=== PATIENT | male | born 1995 | race Caucasian/White ===

== ENCOUNTER 2017-10-03 20:20 | Inpatient (IN) | payer OTHER ==
[~2017-10-03] VITALS: Ht 182.9 cm; Wt 96.5 kg
[2017-10-03 21:01] VITALS: BP 133/80; PULSE 98; RESP 18; TEMP 98.1; O2SAT 98
[2017-10-03 22:25] LABS: AUTOMATED NEUTROPHIL # 7.2 TH/MM3 (1.8-7.7); BASOPHIL % 0.3 % (0.0-2.0); EOSINOPHIL # 0.1 TH/MM3 (0-0.4); EOSINOPHIL % 0.9 % (0.0-4.0); HEMATOCRIT 44.3 % (39.0-51.0); HEMOGLOBIN 15.1 GM/DL (13.0-17.0); LYMPH % 28.5 % (9.0-44.0); LYMPHOCYTE # 3.3 TH/MM3 (1.0-4.8); MEAN CELL VOLUME 87.8 FL (80.0-100.0); MEAN CORPUSCULAR HGB CONC 34.1 % (32.0-36.0); MEAN PLATELET VOLUME 8.1 FL (7.0-11.0); MONO % 8.7 % (0.0-8.0); NEUT % 61.6 % (16.0-70.0); PLATELET COUNT 318 TH/MM3 (150-450); RED BLOOD COUNT 5.04 MIL/MM3 (4.50-5.90); RED CELL DISTRIBUTION WIDTH 13.1 % (11.6-17.2); WHITE BLOOD COUNT 11.7 TH/MM3 (4.0-11.0)
[2017-10-03 22:35] LABS: ALBUMIN 4.5 GM/DL (3.4-5.0); ALT (GPT) 32 U/L (12-78); AST (GOT) 20 U/L (15-37); BICARBONATE 19.8 MEQ/L (21.0-32.0); BLOOD UREA NITROGEN 17 MG/DL (7-18); CALCIUM 9.6 MG/DL (8.5-10.1); CHLORIDE 105 MEQ/L (98-107); CREATININE 1.43 MG/DL (0.60-1.30); GLOMERULAR FILTRATION RATE 62 ML/MIN (>89); GLUCOSE,RANDOM 94 MG/DL (74-106); SODIUM (NA) 142 MEQ/L (136-145)
[2017-10-03 22:44] LABS: ALKALINE PHOSPHATASE 72 U/L (45-117); TOTAL BILIRUBIN ADULT 0.2 MG/DL (0.2-1.0); TOTAL PROTEIN 8.5 GM/DL (6.4-8.2)
--- NOTE | 2017-10-03 23:08 | PD ---
HPI Chief Complaint: Psychiatric Symptoms Time Seen by Provider: 21:57 Travel History International Travel<30 days: No Contact w/Intl Traveler<30days: No Traveled to known affect area: No History of Present Illness HPI 21-year-old white male presents emergency department under Beck act by PD. According to the Beck act the patient had made homicidal statements regarding his family. He had stated that he was going to kill all of his family and was laughing inappropriately. The patient denies this. The patient denies any suicidal homicidal ideation. He denies any recent alcohol use. He does smoke marijuana occasionally. No other drugs. Patient denies any medical complaints. PFSH Past Medical History Narrative Medical Schizophrenia, right femur fracture Schizophrenia: Yes Tetanus Vaccination: < 5 Years ?: Not Past Surgical History Narrative Surgical Right femur fracture with ORIF Social History Alcohol Use: Yes Tobacco Use: No Substance Use: Yes Allergies-Medications (Allergen,Severity, Reaction): Coded Allergies: No Known Allergies (Verified Allergy, Unknown, 10/03/17) Review of Systems General / Constitutional: No: Fever Eyes: No: Visual changes HENT: No: Headaches Cardiovascular: No: Chest Pain or Discomfort Respiratory: No: Shortness of Breath Gastrointestinal: No: Abdominal Pain Genitourinary: No: Dysuria Musculoskeletal: No: Pain Skin: No Rash Neurologic: No: Weakness Psychiatric: Positive: Substance Abuse, No: Anxiety, Depression, Suicidal Ideations, Disorder of Thought, Mood Disorder, Homicidal Ideation Endocrine: No: Polydipsia Hematologic/Lymphatic: No: Easy Bruising Physical Exam Narrative GENERAL: Well-nourished, well-developed patient. SKIN: Warm and dry. HEAD: Normocephalic and atraumatic. EYES: No scleral icterus. No injection or drainage. ENT: No nasal drainage noted. Mucous membranes pink. Airway patent. NECK: Supple, trachea midline. Moves head freely without obvious discomfort. CARDIOVASCULAR: Regular rate and rhythm without murmurs, gallops, or rubs. RESPIRATORY: Breath sounds equal bilaterally. No accessory muscle use. GASTROINTESTINAL: Abdomen soft, non-tender, nondistended. EXTREMITIES: No cyanosis or edema. BACK: Nontender without obvious deformity. No CVA tenderness. NEURO: Patient is alert and oriented. no sensorimotor deficits. Nonfocal. Normal speech. PSYCH: Patient appears to be responding to internal stimuli. He has an unusual affect. He has poor insight and judgment. Data Data Last Documented VS Vital Signs Date Time Temp Pulse Resp B/P (MAP) Pulse Ox O2 Delivery O2 Flow Rate FiO2 10/03/17 21:01 98.1 98 18 133/80 (97) 98 Orders Orders Complete Blood Count With Diff (10/03/17 21:34) Comprehensive Metabolic Panel (10/03/17 21:34) Thyroid Stimulating Hormone (10/03/17 21:34) Psych Screen (10/03/17 21:34) Drug Screen, Random Urine (10/03/17 21:34) Alcohol (Ethanol) (10/03/17 21:34) Labs Laboratory Tests Test 10/03/17 21:20 10/03/17 21:50 10/03/17 21:52 Urine Opiates Screen NEG Urine Barbiturates Screen NEG Urine Amphetamines Screen NEG Urine Benzodiazepines Screen NEG Urine Cocaine Screen NEG Urine Cannabinoids Screen POS White Blood Count 11.7 TH/MM3 Red Blood Count 5.04 MIL/MM3 Hemoglobin 15.1 GM/DL Hematocrit 44.3 % Mean Corpuscular Volume 87.8 FL Mean Corpuscular Hemoglobin 30.0 PG Mean Corpuscular Hemoglobin Concent 34.1 % Red Cell Distribution Width 13.1 % Platelet Count 318 TH/MM3 Mean Platelet Volume 8.1 FL Neutrophils (%) (Auto) 61.6 % Lymphocytes (%) (Auto) 28.5 % Monocytes (%) (Auto) 8.7 % Eosinophils (%) (Auto) 0.9 % Basophils (%) (Auto) 0.3 % Neutrophils # (Auto) 7.2 TH/MM3 Lymphocytes # (Auto) 3.3 TH/MM3 Monocytes # (Auto) 1.0 TH/MM3 Eosinophils # (Auto) 0.1 TH/MM3 Basophils # (Auto) 0.0 TH/MM3 CBC Comment DIFF FINAL Differential Comment Blood Urea Nitrogen 17 MG/DL Creatinine 1.43 MG/DL Random Glucose 94 MG/DL Total Protein 8.5 GM/DL Albumin 4.5 GM/DL Calcium Level 9.6 MG/DL Alkaline Phosphatase 72 U/L Aspartate Amino Transf (AST/SGOT) 20 U/L Alanine Aminotransferase (ALT/SGPT) 32 U/L Total Bilirubin 0.2 MG/DL Sodium Level 142 MEQ/L Potassium Level 3.7 MEQ/L Chloride Level 105 MEQ/L Carbon Dioxide Level 19.8 MEQ/L Anion Gap 17 MEQ/L Estimat Glomerular Filtration Rate 62 ML/MIN Thyroid Stimulating Hormone 3rd Gen 1.540 uIU/ML Ethyl Alcohol Level LESS THAN 3 MG/DL MDM Medical Decision Making Medical Screen Exam Complete: Yes Emergency Medical Condition: Yes Medical Record Reviewed: Yes Interpretation(s) Laboratory Tests Test 10/03/17 21:20 10/03/17 21:50 10/03/17 21:52 Urine Opiates Screen NEG Urine Barbiturates Screen NEG Urine Amphetamines Screen NEG Urine Benzodiazepines Screen NEG Urine Cocaine Screen NEG Urine Cannabinoids Screen POS White Blood Count 11.7 TH/MM3 Red Blood Count 5.04 MIL/MM3 Hemoglobin 15.1 GM/DL Hematocrit 44.3 % Mean Corpuscular Volume 87.8 FL Mean Corpuscular Hemoglobin 30.0 PG Mean Corpuscular Hemoglobin Concent 34.1 % Red Cell Distribution Width 13.1 % Platelet Count 318 TH/MM3 Mean Platelet Volume 8.1 FL Neutrophils (%) (Auto) 61.6 % Lymphocytes (%) (Auto) 28.5 % Monocytes (%) (Auto) 8.7 % Eosinophils (%) (Auto) 0.9 % Basophils (%) (Auto) 0.3 % Neutrophils # (Auto) 7.2 TH/MM3 Lymphocytes # (Auto) 3.3 TH/MM3 Monocytes # (Auto) 1.0 TH/MM3 Eosinophils # (Auto) 0.1 TH/MM3 Basophils # (Auto) 0.0 TH/MM3 CBC Comment DIFF FINAL Differential Comment Blood Urea Nitrogen 17 MG/DL Creatinine 1.43 MG/DL Random Glucose 94 MG/DL Total Protein 8.5 GM/DL Albumin 4.5 GM/DL Calcium Level 9.6 MG/DL Alkaline Phosphatase 72 U/L Aspartate Amino Transf (AST/SGOT) 20 U/L Alanine Aminotransferase (ALT/SGPT) 32 U/L Total Bilirubin 0.2 MG/DL Sodium Level 142 MEQ/L Potassium Level 3.7 MEQ/L Chloride Level 105 MEQ/L Carbon Dioxide Level 19.8 MEQ/L Anion Gap 17 MEQ/L Estimat Glomerular Filtration Rate 62 ML/MIN Thyroid Stimulating Hormone 3rd Gen 1.540 uIU/ML Ethyl Alcohol Level LESS THAN 3 MG/DL Differential Diagnosis MDM: High Differential diagnoses: Schizophrenia, schizoaffective disorder, bipolar, anxiety, depression, adjustment reaction, mood disorder NOS, ODD, depressive disorder NOS, dementia, dementia with agitation, psychosis NOS, substance induced mood disorder, DMDD, Asperger syndrome, infection,electrolyte abnormality, malingering. Narrative Course Mental health screening discussed with the patient. Psychiatric screen ordered. The patient has been medically cleared. This psychiatric medical clearance for psychiatric admission Diagnosis Primary Impression: Medical clearance for psychiatric admission Condition: Stable Jas Clark Oct 03, 2017 23:08
[2017-10-04 02:35] VITALS: BP 106/55; PULSE 50; RESP 18; O2SAT 99
[2017-10-04] MEDS ORDERED: LORazepam 2 MG/ML VIAL IM PRN (10:30)
[2017-10-04] MEDS ORDERED: diphenhydrAMINE HCL 50 MG CAP PO PRN (10:30)
[2017-10-04] MEDS ORDERED: ALUMINUM/MAGNESIUM/SIMETH 30 ML CUP PO PRN (10:30)
[2017-10-04] MEDS ORDERED: MAGNESIUM HYDROXIDE SUSP 30 ML CUP PO PRN (10:30)
[2017-10-04] MEDS ORDERED: LORazepam 1 MG TAB PO PRN (10:30)
[2017-10-04] MEDS ORDERED: ACETAMINOPHEN 325 MG TAB PO PRN (10:30)
[2017-10-04] MEDS ORDERED: diphenhydrAMINE HCL 50 MG/ML VIAL IM PRN (10:30)
--- NOTE | 2017-10-04 10:30 | HHI.HP ---
Provisional Diagnosis Admission Date [place] I. Schizophrenia, paranoid type Certification of Person's Competence To Provide Express and Informed Consent I have personally examined Timbo Mcfadden , a person being served at [facility] on, Oct 04, 2017 10:19. Express and informed consent means consent voluntarily given in writing, by a competent person, after sufficient explanation and disclosure of the subject matter involved to enable the person to make a knowing and willful decision without any element of force, fraud, deceit, duress, or other form of constraint or coercion. This person is 18 years of age or older, is not now known to be incompetent to consent to treatment with a guardian advocate, and does not have a health care surrogate or proxy currently making medical treatment decisions. I have found this person to be one of the following: [] Competent to provide express and informed consent, as defined above, for voluntary admission to this facility and is competent to provide express and informed consent for treatment. He/she has the consistent capacity to make well reasoned, willful, and knowing decisions concerning his or her medical or mental health treatment. The person fully and consistently understands the purpose of the admission for examination/placement and is fully capable of personally exercising all rights [place] [X] Incompetent to provide express and informed consent to voluntary admission, and this is incompetent to provide express and informed consent to treatment. The person must be transferred to involuntary status and a petition for a guardian advocate filed with the Circuit Court. [] Refusing to provide express and informed consent to voluntary admission but is competent to provide express and informed consent for treatment. The person must be discharged or transferred to involuntary status. Form shall be completed within 24 hours of a person's arrival at the receiving facility and filed in the clinical record of each person: 1. Admitted on a voluntary basis 2. Permitted to provide express and informed consent to his/her own treatment 3. Allowed to transfer from involuntary to voluntary status 4. Prior to permitting a person to consent to his or her own treatment after having been previously found incompetent to consent to treatment. History of Present Illness Capacity: Lacks Capacity HPI This is a 21-year-old male who was Beck acted at his first appointment with Dr. Rubio. According to the Beck act the stepfather of the patient reported the patient made comments in the waiting room of the physician's office, "I should kill all my family so I could laugh." Additionally, the Beck act indicates the patient is actively delusional, feels he has been "hacked" and that he has a hit man after him. He also feels his family has stolen millions of dollars from him. His family feels that he is paranoid. The emergency room physician also evaluated the patient and found him to be bizarre and paranoid. The patient would not give information regarding family members or other contacts. He was observed to be both restless and punching santana. When redirected, the patient indicated he was going to try out for [employer]. He reportedly stated that his family was to him. He denies the use of alcohol but does admit to smoking marijuana. He denies other illicit drug use. He declines to take any psychotropic medication. He remains delusional, feeling others have stolen money from him and hacked into his computer system. Review of Systems ROS Limitations: Clinical Condition Psychiatric: COMPLAINS OF: Anxiety, Homicidal Ideation, Delusions Except as stated in HPI: all other systems reviewed are Neg Past Psych History Psychological trauma history Unknown psychological trauma but the patient reportedly has a history of schizophrenia. Violence risk - others (6 mos) High Violence risk - self (6 mos) High Substance Abuse History Drugs/Alcohol past 12 months Smokes marijuana at least weekly. Past Family Social History Coded Allergies: No Known Allergies (Verified Allergy, Unknown, 10/03/17) Family Psych History Unknown. Patient refuses to answer. Social History Apparently he is living with his mother and stepfather. He is unemployed. Unknown whether he receives Social Security disability. Denies the use of alcohol or illicit drugs with the exception of marijuana. Patient's Strengths (min. 2) Verbal and resilient. Physical Exam GENERAL: SKIN: Warm and dry. HEAD: Normocephalic. EYES: No scleral icterus. No injection or drainage. NECK: Supple, trachea midline. No JVD or lymphadenopathy. CARDIOVASCULAR: Regular rate and rhythm without murmurs, gallops, or rubs. RESPIRATORY: Breath sounds equal bilaterally. No accessory muscle use. GASTROINTESTINAL: Abdomen soft, non-tender, nondistended. MUSCULOSKELETAL: No cyanosis, or edema. BACK: Nontender without obvious deformity. No CVA tenderness. Vital Signs Vital Signs Date Time Temp Pulse Resp B/P (MAP) Pulse Ox O2 Delivery O2 Flow Rate FiO2 10/04/17 02:35 50 18 106/55 (72) 99 Room Air 10/03/17 21:01 98.1 Lab Results Test 10/03/17 21:20 10/03/17 21:50 10/03/17 21:52 Urine Opiates Screen NEG Urine Barbiturates Screen NEG Urine Amphetamines Screen NEG Urine Benzodiazepines Screen NEG Urine Cocaine Screen NEG Urine Cannabinoids Screen POS White Blood Count 11.7 TH/MM3 Red Blood Count 5.04 MIL/MM3 Hemoglobin 15.1 GM/DL Hematocrit 44.3 % Mean Corpuscular Volume 87.8 FL Mean Corpuscular Hemoglobin 30.0 PG Mean Corpuscular Hemoglobin Concent 34.1 % Red Cell Distribution Width 13.1 % Platelet Count 318 TH/MM3 Mean Platelet Volume 8.1 FL Neutrophils (%) (Auto) 61.6 % Lymphocytes (%) (Auto) 28.5 % Monocytes (%) (Auto) 8.7 % Eosinophils (%) (Auto) 0.9 % Basophils (%) (Auto) 0.3 % Neutrophils # (Auto) 7.2 TH/MM3 Lymphocytes # (Auto) 3.3 TH/MM3 Monocytes # (Auto) 1.0 TH/MM3 Eosinophils # (Auto) 0.1 TH/MM3 Basophils # (Auto) 0.0 TH/MM3 CBC Comment DIFF FINAL Differential Comment Blood Urea Nitrogen 17 MG/DL Creatinine 1.43 MG/DL Random Glucose 94 MG/DL Total Protein 8.5 GM/DL Albumin 4.5 GM/DL Calcium Level 9.6 MG/DL Alkaline Phosphatase 72 U/L Aspartate Amino Transf (AST/SGOT) 20 U/L Alanine Aminotransferase (ALT/SGPT) 32 U/L Total Bilirubin 0.2 MG/DL Sodium Level 142 MEQ/L Potassium Level 3.7 MEQ/L Chloride Level 105 MEQ/L Carbon Dioxide Level 19.8 MEQ/L Anion Gap 17 MEQ/L Estimat Glomerular Filtration Rate 62 ML/MIN Thyroid Stimulating Hormone 3rd Gen 1.540 uIU/ML Ethyl Alcohol Level LESS THAN 3 MG/DL Mental Status Examination Appearance: Appropriate Consciousness: Alert Orientation: Person, Place Motor Activity: Normal gait Speech: Unremarkable Language: Adequate Fund of Knowledge: Adequate Attention and Concentration: Inadequate Memory: Unremarkable Mood: Anxious Affect: Anxious Thought Process & Associations: Loose associations Thought Content: Bizarre thinking, Ideas of reference, Delusional Hallucination Type: None Delusion Type: Bizarre Suicidal Ideation: No Suicidal Plan: No Suicidal Intention: No Homicidal Ideation: Yes Homicidal Plan: Yes Homicidal Intention: No Insight: Poor Judgment: Impulsive Assessment & Plan Problem List: (1) Schizophrenia, paranoid type ICD Codes: F20.0 - Paranoid schizophrenia Assessment & Plan Estimated LOS: days. 21-year-old male with reported history of paranoid schizophrenia, currently delusional, currently under a Beck act for homicidal ideation and delusional thinking, noncompliant with medications, felt to be at high risk for self-harm as well as harm to others. Patient recently threatening family members and punching santana. For this reason he is being admitted for further evaluation and treatment. This physician has ordered a CBC and comprehensive metabolic panel to determine if any infectious process or metabolic process might be causing or contributing to the patient's psychotic thinking. Additionally, this physician has ordered a thyroid-stimulating hormone level, vitamin B12 level and vitamin D level as deficiencies in these areas can cause or contribute to the patient's psychotic thinking. This physician has also ordered a urine drug screen to determine if any substances might be causing or contributing to the patient's psychosis. An EKG is ordered to determine the patient's cardiac conduction status prior to starting psychotropic medicines which might adversely affect the electrical system of his heart. This physician spoke to the patient's nurse, Lev, regarding the patient's recent behavior. Case management will also be involved to assist with information gathering and disposition planning. Kirill Hu MD Oct 04, 2017 10:30
[2017-10-04 14:23] VITALS: BP 129/89; PULSE 64; RESP 18; TEMP 98.1
[2017-10-05 08:42] LABS: AUTOMATED NEUTROPHIL # 2.7 TH/MM3 (1.8-7.7); BASOPHIL % 0.6 % (0.0-2.0); EOSINOPHIL # 0.2 TH/MM3 (0-0.4); EOSINOPHIL % 2.7 % (0.0-4.0); HEMATOCRIT 42.9 % (39.0-51.0); HEMOGLOBIN 14.8 GM/DL (13.0-17.0); LYMPH % 41.4 % (9.0-44.0); LYMPHOCYTE # 2.4 TH/MM3 (1.0-4.8); MEAN CELL VOLUME 87.7 FL (80.0-100.0); MEAN CORPUSCULAR HEMOGLOBIN 30.2 PG (27.0-34.0); MEAN CORPUSCULAR HGB CONC 34.4 % (32.0-36.0); MEAN PLATELET VOLUME 7.9 FL (7.0-11.0); MONO % 8.2 % (0.0-8.0); MONOCYTE # 0.5 TH/MM3 (0-0.9); NEUT % 47.1 % (16.0-70.0); PLATELET COUNT 266 TH/MM3 (150-450); RED BLOOD COUNT 4.89 MIL/MM3 (4.50-5.90); RED CELL DISTRIBUTION WIDTH 12.8 % (11.6-17.2); WHITE BLOOD COUNT 5.8 TH/MM3 (4.0-11.0)
[2017-10-05 09:12] LABS: ALBUMIN 4.1 GM/DL (3.4-5.0); AST (GOT) 21 U/L (15-37); BLOOD UREA NITROGEN 13 MG/DL (7-18); CALCIUM 8.8 MG/DL (8.5-10.1); CHLORIDE 105 MEQ/L (98-107); CREATININE 1.09 MG/DL (0.60-1.30); GLOMERULAR FILTRATION RATE 85 ML/MIN (>89); GLUCOSE,RANDOM 84 MG/DL (74-106); SODIUM (NA) 141 MEQ/L (136-145)
[2017-10-05 09:13] LABS: ALT (GPT) 31 U/L (12-78); CHOLESTEROL 230 MG/DL (120-200)
[2017-10-05 09:39] LABS: ALKALINE PHOSPHATASE 63 U/L (45-117); HDL CHOLESTEROL 40.3 MG/DL (40.0-60.0); LDL CHOLESTEROL 172 MG/DL (0-99); TOTAL BILIRUBIN ADULT 0.4 MG/DL (0.2-1.0); TOTAL PROTEIN 7.5 GM/DL (6.4-8.2); TRIGLYCERIDES 91 MG/DL (42-150)
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
[2017-10-05] MEDS ORDERED: diphenhydrAMINE HCL 50 MG CAP PO PRN (12:30)
[2017-10-05] MEDS ORDERED: BENZTROPINE MESYLATE 1 MG TAB PO PRN (12:30)
[2017-10-05] MEDS ORDERED: BENZTROPINE MESYLATE 2 MG/2 ML VIAL IM PRN (12:30)
--- NOTE | 2017-10-05 13:38 | EKG ---
Date Performed: 10/05/2017 Time Performed: 10:43:18 PTAGE: 21 years EKG: SINUS BRADYCARDIA WITH SINUS ARRHYTHMIA POSSIBLE RIGHT VENTRICULAR CONDUCTION DELAY TALL T- WAVES, SUGGESTS HYPERKALEMIA ABNORMAL ECG NO PREVIOUS TRACING DOCTOR: Wilmar Bean Interpretating Date/Time 10/05/2017 13:37:13
[2017-10-05 17:09] LABS: HEMOGLOBIN A1C 5.3 % (4.3-6.0)
[2017-10-05 18:17] VITALS: BP 135/77; PULSE 86; RESP 18; TEMP 98.6; O2SAT 99
[2017-10-06 06:03] VITALS: BP 100/50; PULSE 47; RESP 17; TEMP 97.5; O2SAT 95
[2017-10-06 06:19] VITALS: PULSE 60
--- NOTE | 2017-10-06 10:22 | HHI.PYPN ---
Subjective Remarks Patient seen and examined. Chart reviewed. Case discussed with nursing staff who reports that the patient has been bizarre on the unit, running up and down the bill. On my examination today, the patient is oddly related and appears internally preoccupied. He denies any SI or HI but seems unreliable to contract for safety. Regarding his presenting threats to family he says "I regret saying it." He says that he was nonadherent with psychotropic medications because a doctor at his most recent hospitalization "said not to take your medicine." Did receive a dose of Ativan overnight. No side effects from medications. No physical complaints. Received a call from patient's mother. She has spoken with the patient's biological father and discovered that the patient previously responded well to Haldol decanoate. We review the patient's medication options and agree to resume oral Haldol with short acting IM backup should the patient refuse oral Haldol. Plan will be for Haldol Decanoate so long as he responds to this agent well. Review of Systems ROS Limitations: Psychotic, Poor Historian Except as stated in HPI: all other systems reviewed are Neg Mental Status Examination Appearance: Appropriate Consciousness: Alert Orientation: Person, Place (at least) Motor Activity: Other (no abnormal motor movements noted) Speech: Unremarkable Language: Adequate Fund of Knowledge: Adequate Attention and Concentration: Inadequate Memory: Unremarkable Mood: Anxious Affect: Blunt (odd) Thought Process & Associations: Tangential Thought Content: Bizarre thinking Hallucination Type: Other (remains internally preoccupied) Delusion Type: None Suicidal Ideation: No Suicidal Plan: No Suicidal Intention: No Homicidal Ideation: No Homicidal Plan: No Homicidal Intention: No Insight: Poor Judgment: Poor Results Labs Labs reviewed. Vitals/IOs Vital Signs Date Time Temp Pulse Resp B/P (MAP) Pulse Ox O2 Delivery O2 Flow Rate FiO2 10/06/17 06:19 60 10/06/17 06:03 97.5 17 100/50 (67) 95 10/04/17 02:35 Room Air Assessment & Plan Problem List: (1) Schizophrenia, paranoid type ICD Codes: F20.0 - Paranoid schizophrenia Assessment & Plan Initiate Haldol titration, PO with IM backup. Interval target dose of Haldol will be 10mg BID. To consider Haldol dec. R/B/A d/w pt's mother/HCS. Patient has Cogentin p.r.n. any EPS. Continue to monitor on high acuity unit. Continue other medications and care as ordered. Justification for Cont. Inpt. Medication changes. Impairment in reality construction. Risk for decompensation in less restrictive environment. Discharge Planning Pending psychiatric stabilization Request HC Surrog/Guard Advoc?: Yes Allan Koehler MD Oct 06, 2017 10:22
--- NOTE | 2017-10-06 13:25 | PD.TTN ---
Patient Problems 1. Discharge planning 2. Medication compliance 3. Knowledge deficit 4. Lack of coping skills Progress Toward Goals Provider Present: Dr. Arjun Koehler Provider Input: Started on antipsychotic, needs stabilization. Dr. Rubio treats him. Nurse(s) Present: Not present Psychiatric Counselors Present: GERALD GoldsteinW Group Spec/RT/OT/PUENTES Present: Antoinette Potter, GPS, Pastor Hdz, OT Group Spec/RT/OT/PUENTES Input: Pt is unable to tolerate the group activities. pt is disorganized. Discharge Plan Other Antoinette Potter Oct 06, 2017 13:25
[2017-10-06] MEDS ORDERED: HALOPERIDOL LACTATE 5 MG/ML AMP IM PRN (14:15)
[2017-10-06 18:08] VITALS: BP 139/61; PULSE 95; RESP 19; TEMP 98.5; O2SAT 99
[2017-10-06] MEDS: HALOPERIDOL 5 MG TAB PO SCH (21:10)
[2017-10-07 06:28] VITALS: BP 135/59; PULSE 50; RESP 17; TEMP 97.4; O2SAT 98
[2017-10-07] MEDS: HALOPERIDOL 5 MG TAB PO SCH ×2 (09:13→20:43)
[2017-10-07] MEDS: CHOLECALCIFEROL (VIT D3) 400 UNIT TAB PO SCH (09:14)
--- NOTE | 2017-10-07 12:50 | HHI.PYPN ---
Subjective Remarks Pt seen and discussed with staff. He remains paranoid and has been expressing that his family is hacking him and stole millions of dollars from him. He has been pacing halls, flapping arms and squawking. He is compliant with medications. He denies SI/HI today. Mental Status Examination Appearance: Appropriate Consciousness: Alert Orientation: Person, Place (at least) Motor Activity: Other (no abnormal motor movements noted) Speech: Unremarkable Language: Adequate Fund of Knowledge: Adequate Attention and Concentration: Inadequate Memory: Unremarkable Mood: Anxious Affect: Blunt (odd) Thought Process & Associations: Tangential Thought Content: Bizarre thinking Hallucination Type: Other (remains internally preoccupied) Delusion Type: None Suicidal Ideation: No Suicidal Plan: No Suicidal Intention: No Homicidal Ideation: No Homicidal Plan: No Homicidal Intention: No Insight: Poor Judgment: Poor Results Vitals/IOs Vital Signs Date Time Temp Pulse Resp B/P (MAP) Pulse Ox O2 Delivery O2 Flow Rate FiO2 10/07/17 06:28 97.4 50 17 135/59 (84) 98 10/04/17 02:35 Room Air Assessment & Plan Problem List: (1) Schizophrenia, paranoid type ICD Codes: F20.0 - Paranoid schizophrenia Assessment & Plan Continue current tx plan. Estimated LOS: days Justification for Cont. Inpt. impairments in reality testing Request HC Surrog/Guard Advoc?: Yes Radha Amin MD Oct 07, 2017 12:50
[2017-10-07] MEDS ORDERED: PILL SPLITTER OTHER PRN (14:45)
[2017-10-07 17:41] VITALS: BP 107/77; PULSE 95; RESP 19; TEMP 97.2; O2SAT 97
[2017-10-08 06:17] VITALS: BP 148/76; PULSE 53; RESP 17; TEMP 97.8; O2SAT 97
[2017-10-08] MEDS: HALOPERIDOL 5 MG TAB PO SCH ×2 (08:36→20:15)
[2017-10-08] MEDS: CHOLECALCIFEROL (VIT D3) 400 UNIT TAB PO SCH (08:36)
--- NOTE | 2017-10-08 13:21 | HHI.PYPN ---
Subjective Remarks Pt seen and discussed with staff. He was caught attempting to cheek medications this morning by staff but eventually was compliant. Sleep is fair. He remains paranoid, but denies SI/HI. Mental Status Examination Appearance: Appropriate Consciousness: Alert Orientation: Person, Place (at least) Motor Activity: Other (no abnormal motor movements noted) Speech: Unremarkable Language: Adequate Fund of Knowledge: Adequate Attention and Concentration: Inadequate Memory: Unremarkable Mood: Anxious, Other ("fine") Affect: Other (restricted) Thought Process & Associations: Tangential Thought Content: Bizarre thinking, Delusional Hallucination Type: Other (less internally preoccupied) Delusion Type: Paranoid Suicidal Ideation: No Suicidal Plan: No Suicidal Intention: No Homicidal Ideation: No Homicidal Plan: No Homicidal Intention: No Insight: Poor Judgment: Poor Results Vitals/IOs Vital Signs Date Time Temp Pulse Resp B/P (MAP) Pulse Ox O2 Delivery O2 Flow Rate FiO2 10/08/17 06:17 97.8 53 17 148/76 (100) 97 Assessment & Plan Problem List: (1) Schizophrenia, paranoid type ICD Codes: F20.0 - Paranoid schizophrenia Assessment & Plan Continue current tx plan. Estimated LOS: days Justification for Cont. Inpt. impairments in reality testing Request HC Surrog/Guard Advoc?: Yes Radha Amin MD Oct 08, 2017 13:21
[2017-10-08 17:26] VITALS: BP 130/59; PULSE 60; RESP 18; TEMP 98.1; O2SAT 99
[2017-10-09 05:57] VITALS: BP 133/78; PULSE 57; RESP 19; TEMP 98; O2SAT 97
[2017-10-09] MEDS: CHOLECALCIFEROL (VIT D3) 400 UNIT TAB PO SCH (08:14)
[2017-10-09] MEDS: HALOPERIDOL 5 MG TAB PO SCH ×2 (08:15→20:25)
--- NOTE | 2017-10-09 11:52 | HHI.PYPN ---
Subjective Remarks Patient seen and examined with nurse. Chart reviewed. Records from psychologist, including MMPI, noted and reviewed. Case discussed with nursing staff who reports that patient's behavior was fairly appropriate overnight. On my exam, patient reports that he likes the Haldol because it is helping him to calm down. He describes his mood as "ok." He denies any SI/HI. Denies any urge to hurt family. Denies AVH. No delusional material verbalized. Denies side effects from medications. No physical complaints. Spoke with patient's mother/HCS. She notes that either she or her partner, Mr. Goldstein, have visited daily and have seen improvement in patient with Haldol. She finds him more organized and less focused on delusional material. She is supportive of starting Haldol Dec. R/B/A for this med discussed with mother. Review of Systems ROS Limitations: Poor Historian Except as stated in HPI: all other systems reviewed are Neg Mental Status Examination Appearance: Appropriate Consciousness: Alert Orientation: Person, Place (at least) Motor Activity: Other (no hand tremor, no cogwheeling, no dystonia, no dyskinesia, no other motor abnormalities noted) Speech: Unremarkable Language: Adequate Fund of Knowledge: Adequate Attention and Concentration: Inadequate Memory: Unremarkable Mood: Other ("okay") Affect: Blunt Thought Process & Associations: Circumstantial Thought Content: Other (perseverative on discharge) Hallucination Type: None (denies AVH) Delusion Type: None (no delusional material verbalized) Suicidal Ideation: No Suicidal Plan: No Suicidal Intention: No Homicidal Ideation: No Homicidal Plan: No Homicidal Intention: No Insight: Poor Judgment: Poor Results Labs Labs reviewed. Vitals/IOs Vital Signs Date Time Temp Pulse Resp B/P (MAP) Pulse Ox O2 Delivery O2 Flow Rate FiO2 10/09/17 05:57 98.0 57 19 133/78 (96) 97 Assessment & Plan Problem List: (1) Schizophrenia, paranoid type ICD Codes: F20.0 - Paranoid schizophrenia Assessment & Plan Patient is presently receiving 15 mg/day oral Haldol and so conservatively will require between 150 and 225 mg of Haldol Decanoate (and likely will require more with titration of oral Haldol dose). I will go ahead and order 100 mg Haldol Decanoate IM today and plan to administer the balance of the dose in 3-7 days as recommended by cook morning. I will continue with oral Haldol titration as ordered to target residual psychotic symptoms. Continue to monitor on high acuity unit. Continue other medications and care as ordered. Justification for Cont. Inpt. Medication changes. Risk for decompensation in less restrictive environment. Discharge Planning Pending psychiatric stabilization. Anticipate discharge middle or end of the week. Request HC Surrog/Guard Advoc?: Yes Allan Koehler MD Oct 09, 2017 11:52
[2017-10-09] MEDS ORDERED: HALOPERIDOL DECANOATE 50 MG/ML VIAL IM SCH (15:00)
[2017-10-09 17:14] VITALS: BP 127/73; PULSE 62; RESP 19; TEMP 97; O2SAT 98
[2017-10-10 05:52] VITALS: BP 118/72; PULSE 74; RESP 18; TEMP 97.1
[2017-10-10] MEDS: CHOLECALCIFEROL (VIT D3) 400 UNIT TAB PO SCH (08:43)
[2017-10-10] MEDS: HALOPERIDOL 5 MG TAB PO SCH ×2 (08:43→20:59)
--- NOTE | 2017-10-10 09:57 | PD.TTN ---
Patient Problems 1. Discharge planning 2. Medication compliance 3. Knowledge deficit 4. Lack of coping skills Progress Toward Goals Provider Present: Dr. Arjun Koehler Provider Input: 10/10/17 - Patient has been started onHaldol Dec. Possible discharge home by the end of the week. 10-06-17 - Started on antipsychotic, needs stabilization. Dr. Rubio treats him. Nurse(s) Present: Not present Psychiatric Counselors Present: Uma Brown LCSW, OPAL ChavezCarter Psych Therapist Input: 10/10/17 - Patient remains medication compliant and appears to be improving. Group Spec/RT/OT/PUENTES Present: DILLON Lynne, Pastor Hdz, OT Group Spec/RT/OT/PUENTES Input: 10/10/17 - Patient is unable to tolerate group activities. 10/06/17 - Pt is unable to tolerate the group activities. pt is disorganized. Discharge Plan Other 10/10/17 - Patient follows with Dr. Rubio. Documentation Scribe: ELOY Chavez Date Resolved: Oct 10, 2017 Sabi Camarillo Oct 10, 2017 09:57
--- NOTE | 2017-10-10 10:35 | HHI.PYPN ---
Subjective Remarks Patient seen and examined. Chart reviewed. Case discussed with nursing staff. Case discussed in treatment team. On my examination today, the patient is discharged focused. He says that he feels "perfectly normal." He denies any SI or HI. Denies any AVH. Denies any side effects from medications and is tolerating Haldol Decanoate well. I educate the patient regarding Haldol Decanoate dosing. No physical complaints. Review of Systems Except as stated in HPI: all other systems reviewed are Neg Mental Status Examination Appearance: Appropriate Consciousness: Alert Orientation: Person, Place Motor Activity: Other (no motor abnormalities noted) Speech: Unremarkable Language: Adequate Fund of Knowledge: Adequate Attention and Concentration: Inadequate Memory: Unremarkable Mood: Other (calm) Affect: Blunt Thought Process & Associations: Circumstantial Thought Content: Other (remains perseverative on discharge) Hallucination Type: None Delusion Type: None Suicidal Ideation: No Suicidal Plan: No Suicidal Intention: No Homicidal Ideation: No Homicidal Plan: No Homicidal Intention: No Insight: Poor Judgment: Poor Results Labs Labs reviewed. No new labs. Vitals/IOs Vital Signs Date Time Temp Pulse Resp B/P (MAP) Pulse Ox O2 Delivery O2 Flow Rate FiO2 10/10/17 05:52 97.1 74 18 118/72 (87) 10/09/17 17:14 98 Assessment & Plan Problem List: (1) Schizophrenia, paranoid type ICD Codes: F20.0 - Paranoid schizophrenia Assessment & Plan Continue Haldol titration as ordered. Plan to administer additional Haldol Decanoate later in the week. Continue to monitor on the inpatient unit in the meantime. Continue other medications and care as ordered. Justification for Cont. Inpt. medication changes planned. Risk for decompensation in less restrictive environment. Discharge Planning Pending psychiatric stabilization. Request HC Surrog/Guard Advoc?: Yes Allan Koehler MD Oct 10, 2017 10:35
[2017-10-10 18:28] VITALS: BP 120/68; PULSE 76; RESP 18; TEMP 97.6; O2SAT 99
[2017-10-11 05:57] VITALS: BP 112/60; PULSE 60; RESP 16; TEMP 97.2; O2SAT 96
[2017-10-11] MEDS: HALOPERIDOL 5 MG TAB PO SCH ×2 (08:37→20:09)
[2017-10-11] MEDS: CHOLECALCIFEROL (VIT D3) 400 UNIT TAB PO SCH (08:37)
--- NOTE | 2017-10-11 11:28 | HHI.PYPN ---
Subjective Remarks Patient seen and examined. Chart reviewed. Case discussed with nursing staff. No behavioral issues noted overnight. On my examination today, the patient exhibits greater affective reactivity. He denies any SI or HI. In particular, the patient denies any urge to hurt his family. He denies any side effects from medications. We discussed the plan for additional Haldol Decanoate tomorrow, and general psychoeducation provided regarding the patient's medication regimen. The patient is agreeable to additional Haldol Decanoate. No physical complaints. Review of Systems Except as stated in HPI: all other systems reviewed are Neg Mental Status Examination Appearance: Appropriate Consciousness: Alert Orientation: x4 Motor Activity: Other (no abnormal motor movements noted) Speech: Unremarkable Language: Adequate Fund of Knowledge: Adequate Attention and Concentration: Adequate, Inadequate Memory: Unremarkable Mood: Appropriate Affect: Appropriate (more full and reactive today) Thought Process & Associations: Intact, Logical, Linear Thought Content: Appropriate Hallucination Type: None Delusion Type: None Suicidal Ideation: No Suicidal Plan: No Suicidal Intention: No Homicidal Ideation: No Homicidal Plan: No Homicidal Intention: No Insight: Poor (improving somewhat) Judgment: Poor (improving somewhat) Results Labs Labs reviewed. Vitals/IOs Vital Signs Date Time Temp Pulse Resp B/P (MAP) Pulse Ox O2 Delivery O2 Flow Rate FiO2 10/11/17 05:57 97.2 60 16 112/60 (77) 96 Assessment & Plan Problem List: (1) Schizophrenia, paranoid type ICD Codes: F20.0 - Paranoid schizophrenia Assessment & Plan Patient has received 100mg IM Haldol Dec and is tolerating this well with good improvement in psychotic symptoms. I will order an additional 150mg IM for tomorrow morning to bring the total IM dose to between 10-15x the oral daily dose. Plan will be for monthly Haldol Dec injections of 250mg IM. Continue oral Haldol supplementation. Continue to monitor on the inpatient unit. Continue other medications and care as ordered. Patient may sign voluntary. Justification for Cont. Inpt. Medication changes planned Discharge Planning Possible discharge tomorrow, . I have asked the counselor to reach out to parents and have them make a visit this evening to assess the patient. Request HC Surrog/Guard Advoc?: Yes Allan Koehler MD Oct 11, 2017 11:28
[2017-10-11 18:12] VITALS: BP 138/63; PULSE 85; RESP 18; TEMP 98; O2SAT 98
[2017-10-12 05:48] VITALS: BP 110/55; PULSE 55; RESP 18; TEMP 97.6; O2SAT 97
[2017-10-12] MEDS: CHOLECALCIFEROL (VIT D3) 400 UNIT TAB PO SCH (08:39)
[2017-10-12] MEDS: HALOPERIDOL 5 MG TAB PO SCH (08:39)
[2017-10-12] MEDS ORDERED: HALOPERIDOL DECANOATE 50 MG/ML VIAL IM ONE (09:00)
[2017-10-12] MEDS ORDERED: Benztropine PO (11:40)
[2017-10-12] MEDS ORDERED: HALO10TA PO (11:40)
[2017-10-12] MEDS ORDERED: HALO100P IM (11:40)
[2017-10-12] MEDS ORDERED: VITD400 PO (11:40)
--- NOTE | 2017-10-12 11:40 | HHI.DS ---
Psychiatry Discharge Summary Inpatient Psychiatric care?: Yes Advance Directive: No Reason Not Provided: Due to Patient Condition Mental Health AdvanceDirective: No Health Care Proxy: No Admission Admission Date Oct 04, 2017 at 10:18 Admission Diagnosis: (1) Schizophrenia, paranoid type ICD Code: F20.0 - Paranoid schizophrenia Brief History This is a 21-year-old male who was Beck acted at his first appointment with Dr. Rubio. According to the Beck act the stepfather of the patient reported the patient made comments in the waiting room of the physician's office, "I should kill all my family so I could laugh." Additionally, the Beck act indicates the patient is actively delusional, feels he has been "hacked" and that he has a hit man after him. He also feels his family has stolen millions of dollars from him. His family feels that he is paranoid. The emergency room physician also evaluated the patient and found him to be bizarre and paranoid. The patient would not give information regarding family members or other contacts. He was observed to be both restless and punching santana. When redirected, the patient indicated he was going to try out for mixed martial arts. He reportedly stated that his family was to him. He denies the use of alcohol but does admit to smoking marijuana. He denies other illicit drug use. He declines to take any psychotropic medication. He remains delusional, feeling others have stolen money from him and hacked into his computer system. Tobacco Use In Past 30 Days: No Tobacco Past 30 Days Alcohol Use: Never Hospital Course Patient was admitted to a locked, inpatient psychiatric unit. Appropriate precautions were in place throughout patient's hospital stay. Patient was seen and examined on the unit by psychiatry and also visited by counselor. Psychotropic medications were adjusted. Patient was started on long-acting injectable Haldol Decanoate. Patient had improvement in presenting psychiatric symptomatology during the course of his hospital stay. There was no evidence of any suicidality or homicidality on the inpatient unit. The patient remained in good behavioral control and was compliant with medications. He was transitioned from the high acuity unit to the lower acuity unit without incident and tolerated the milieu of the lower acuity unit well. Collateral information was obtained from the patient's mother and mother's partner. On the day of discharge: Patient seen and examined with nurse. Chart reviewed. Case discussed with nursing staff. No behavioral issues noted overnight. Case discussed with counselor who has reached out the patient's family. Family reportedly feels the patient is much improved and is comfortable having the patient return home today. On my examination today, the patient is requesting discharge from the inpatient psychiatric unit today. He denies any suicidal or homicidal ideation, intent or plan on direct questioning and contracts for safety. In particular, the patient denies any urge to hurt family members. Mood is stable and I can elicit no depressive or hypomanic/manic symptoms. He denies any audiovisual hallucinations. I can elicit no delusional beliefs. There is no evidence of any impairment in reality construction. He denies side effects from medications. Education provided regarding patient's discharge medication regimen including the need for oral supplementation of Haldol Decanoate and need for subsequent Haldol Decanoate injections. No physical complaints. Suicide and violence risk assessment on day of discharge both suggest lower imminent risk, and the patient's level of function is adequate for outpatient care. Patient has maximized the benefit from this inpatient psychiatric hospital stay and will be discharged home today with psychiatric follow-up as arranged by counselor. Patient is also to follow-up with primary care. I have counseled the patient to abstain from substances of abuse. I have counseled the patient regarding warning signs for need to return to the psychiatric emergency room as part of a general safety plan. Results Blood Pressure 110 / 55 Vital Signs Date Time Temp Pulse Resp B/P (MAP) Pulse Ox O2 Delivery O2 Flow Rate FiO2 10/12/17 05:48 97.6 55 18 110/55 (73) 97 Laboratory Results Test 10/05/17 07:06 Cholesterol Level 230 MG/DL (120-200) HDL Cholesterol 40.3 MG/DL (40.0-60.0) Hemoglobin A1c 5.3 % (4.3-6.0) LDL Cholesterol 172 MG/DL (0-99) Triglycerides Level 91 MG/DL (42-150) Summary of Procedures None done Imaging None done Pending results at discharge: No Medications # of Antipsychotic meds at D/C: 1 Approp Antipsych med options 1 - Minimum of three failed multiple trials of monotherapy. 2 - Documented plan to taper to monotherapy due to previous use of multiple meds OR cross-taper in progress at D/C. 3 - Documentation of augmentation of Clozapine. 4 - Justification other than those listed in allowable values 1-3, document here : Discharge Discharge Date: Oct 12, 2017 Discharge Diagnosis: (1) Schizophrenia, paranoid type Diagnosis: Principal (stable) ICD Code: F20.0 - Paranoid schizophrenia Pt Condition on Discharge: Stable Discharge Disposition: Discharge Home Discharge Instructions Diet Instructions: As Tolerated, No Restrictions Activities you can perform: Weight Bearing as Almita Scheduled Appointment: as per counselor's notes New Orders: VITAMIN D,25-HYDROXY - 2 Months New Medications: Haloperidol (Haloperidol) 10 Mg Tab 10 MG PO BID for Mental Health for 15 Days, #30 TAB 1 Refill Take oral Haldol at least until your next Haldol Decanoate injection, or as instructed by your outpatient provider. Haloperidol Decanoate Inj (Haldol Decanoate Inj) 100 Mg/Ml Inj 250 MG IM Q28D for Mental Health, #3 VIAL 0 Refills This dose of Haldol Decanoate is due on 11/06/2017. Cholecalciferol (Vitamin D3) 400 Unit Tab 400 UNITS PO DAILY for Nutritional Supplement for 15 Days, #15 TAB 1 Refill [Benztropine] () 1 MG TAB 1 MG PO Q12HR PRN for EXTRA PYRAMIDAL SYMPTOMS, #15 TAB 1 Refill Discharge Time <= 30 minutes Mental Status Examination Appearance: Appropriate Consciousness: Alert Orientation: x4 Motor Activity: Other (no hand tremor, no cogwheeling, no dystonia, no dyskinesia, no other motor abnormalities noted.) Speech: Unremarkable Language: Adequate Fund of Knowledge: Adequate Attention and Concentration: Adequate Memory: Unremarkable Mood: Appropriate Affect: Appropriate Thought Process & Associations: Intact, Logical, Goal directed, Linear Thought Content: Appropriate Hallucination Type: None Delusion Type: None Suicidal Ideation: No Suicidal Plan: No Suicidal Intention: No Homicidal Ideation: No Homicidal Plan: No Homicidal Intention: No Mental Status Exam Remarks Insight and judgment are fair Discharge/Advance Care Plan Health Problems: (1) Schizophrenia, paranoid type Goals to promote your health * To prevent worsening of your condition and complications * To maintain your health at the optimal level Directions to meet your goals Take your medications as prescribed Follow your dietary instruction Follow activity as directed Keep your appointments as scheduled Take your immunizations and boosters as scheduled If your symptoms worsen call your PCP, if no PCP go to Urgent Care Center or Emergency Room For 20/02 questions related to your inpatient stay or results of tests pending at discharge, please contact Dr. Allan Koehler at Smoking is Dangerous to Your Health. Avoid second hand smoking Allan Koehler MD Oct 12, 2017 11:40
== END 2017-10-12 13:10 | DRG 885 ==
LOC: NEPJ 20:20 → NEDA 10-04 10:18 → H270 10-04 13:05 → H260 10-10 08:10
PROVIDERS: ADMIT Psychiatry & Neurology Psychiatry; ATTEND Psychiatry & Neurology Psychiatry
DX: F20.0 Paranoid schizophrenia (principal); R45.850 Homicidal ideations; F12.90 Cannabis use, unspecified, uncomplicated; Z91.14 Patient's other noncompliance with medication regimen
CPT/HCPCS: 80053; 80061; 80307; 82306; 82607; 83036; 84443; 85025; 93005; 99285; J1631; J2060